=== PATIENT | male | born 1980 | race Caucasian/White ===

== ENCOUNTER 2024-01-08 10:37 | Outpatient (AMB) | payer MEDICAID, SELFPAY ==
--- NOTE | 2024-01-08 10:41 | MHC.OFFVIS ---
Vital Signs 01/08/24 10:44 Height 5 ft 5.75 in Weight 220 lb 7.396 oz BMI 35.9 BP 166/93 H Blood Pressure Location Lt brachial Position Sitting Pulse 94 Intake Visit Reasons: pt scheduled per [facility] Intake Note: Kevin presents in the office as a appt per mark. CC: President And Chief Executive Officer Required: No Allergies No Known Allergies Allergy (Verified 01/08/24 10:45) HPI HPI pt scheduled per [facility]: Details: HPI 43 yr old m here for assessment for abdominal pain, left lower side Pain has been there since last June comes and goes it can be colicky pain can last few hours excedrin helps a lot no issue with urine flow, denies dysuria he admits to chronic constipation - passing the stool does not relieve the pain denies blood in the stool seeing neurologist in [facility] He had EGD and colo last year, mild gastritis and polyps removed ROS: Constitutional : No Weight loss, No Fever, No Chills ENT/Mouth : No sore throat, No Rhinorrhea Eyes: No Swelling, No Redness Cardiovascular : No Chest Pain, No SOB, No Edema Respiratory : No Cough, No Sputum, No Wheezing Gastrointestinal : see HPI Genitourinary : NO Dysuria, No Urinary Frequency, No Hematuria, No Urgency Musculoskeletal : + joint pain, No Myalgias, No Joint Swelling Skin : No Skin Lesions, No rash Neuro : No Weakness, No Numbness, No Dizziness, No Headache--blind and deaf Psych : No Anxiety/Panic, No Depression Heme/Lymph: No Bruising, No Lymphadenopathy Endocrine : No Polyuria, No Polydipsia All other systems reviewed and are negative. Medical History deafness blindness DM Migraines Surgical History spine stimulator Family History Social History EXAM: GENERAL: The patient is well developed and nontoxic. VITAL SIGNS:see workflow HEENT: Nonicteric sclerae, PERRLA, EOMI. Oropharynx clear. Moist mucous membranes. Conjunctivae appear well perfused. No thyroid mass. CHEST: Chest wall is nontender. HEART: Regular rate and rhythm without murmurs. LUNGS: Clear to auscultation bilaterally. ABDOMEN: Soft, positive bowel sounds, nontender, no organomegaly.no flank tenderness SKIN: No rash, no excessive bruising, petechiae, or purpura. NEUROLOGIC: Cranial nerves II-XII intact without motor/sensory deficit. Psych: normal affect A/P: 1/ LLQ pain, colicky, ddx: renal colic, constipation, musculoskeletal etiology, radiculopathy from DM PLAN: 1/ KUB 2/ routine labs, UA 3/ US abdomen 4/ cont with ricardo for the meantime 5/ commence miralax once or twice a day, add levsin prn PFSH Surgical History (Updated 01/08/24 @ 10:45 by GRETA Vee) Hx of colonoscopy Physical Exam Vital Signs: Last Vital Signs Pulse 94 01/08/24 10:44 BP 166/93 H 01/08/24 10:44 BMI result Body Mass Index 35.9 Assessment & Plan Assessment & Plan (1) LLQ abdominal pain: Code(s): R10.32 - Left lower quadrant pain Category: Medical Plan: A/P: 1/ LLQ pain, colicky, ddx: renal colic, constipation, musculoskeletal etiology, radiculopathy from DM PLAN: 1/ KUB 2/ routine labs 3/ US abdomen 4/ cont with ricardo for the meantime 5/ commence miralax once or twice a day, add levsin prn (2) LLQ abdominal pain: Code(s): R10.32 - Left lower quadrant pain Category: Medical Plan: A/P: 1/ LLQ pain, colicky, ddx: renal colic, constipation, musculoskeletal etiology, radiculopathy from DM PLAN: 1/ KUB 2/ routine labs 3/ US abdomen 4/ cont with ricardo for the meantime 5/ commence miralax once or twice a day, add levsin prn Orders: Orders US abdomen complete Today R10.32 - Left lower quadrant pain XR KUB Today R10.32 - Left lower quadrant pain Complete Blood Count Auto Diff Today R10.32 - Left lower quadrant pain Comprehensive Met. Panel Today K75.81 - Nonalcoholic steatohepatitis (HERRERA), R10.32 - Left lower quadrant pain UA CC w/rflx Micro + Cult Today R30.0 - Dysuria Medications: New hyoscyamine sulfate 0.125 mg PO QID 60 tabs 0RF propranolol 20 mg PO BID 60 tabs 1RF hyoscyamine sulfate 0.125 mg PO QID 60 tabs 0RF gabapentin 600 mg PO TID 90 tabs 2RF propranolol 20 mg PO BID 60 tabs 1RF gabapentin 600 mg PO TID 90 tabs 2RF Coding Level of Care Code New Pt Level 3 (19286) Diagnoses LLQ abdominal pain R10.32
[2024-01-08 10:44] VITALS: BP 166/93; PULSE 94; BMI 35.9
== END 2024-01-08 11:33 | disposition home or self-care (01) ==
PROVIDERS: Visit Provider Internal Medicine Gastroenterology
DX: R10.32 Left lower quadrant pain (principal)
CPT/HCPCS: 99203

== ENCOUNTER 2024-01-08 10:37 | Outpatient (REF) | payer MEDICAID, SELFPAY ==
[2024-01-08 11:57] LABS: MANUAL DIFF FLAG NO
[2024-01-08 12:25] LABS: Basophils Absolute Auto 0.1 X10*3/uL (0.0-0.2); Basophils Percent Auto 0.6 % (0-2); Eosinophils Absolute Auto 0.3 X10*3/uL (0.0-0.4); Eosinophils Percent Auto 3.6 % (0-4); Hematocrit 45.2 % (42.0-52.0); Hemoglobin 15.1 g/dl (14.0-18.0); Imm Gran Abs Auto 0.04 X10*3/uL (0.00-0.03); Imm Gran Pct Auto 0.5 % (0.0-0.4); Lymphocytes Absolute Auto 1.7 X10*3/uL (1.2-4.9); Lymphocytes Percent Auto 20.5 % (20-40); Mean Corpuscular HGB Conc 33.4 g/dl (31.0-36.0); Mean Corpuscular Hemoglobin 28.9 pg (27.0-33.0); Mean Corpuscular Volume 86.4 fL (80.0-98.0); Mean Platelet Volume 11.3 fL (9.4-12.4); Monocytes Absolute Auto 0.7 X10*3/uL (0.1-1.2); Monocytes Percent Auto 8.7 % (2-11); Neutrophils Absolute Auto 5.3 x10*3/uL (2.0-8.3); Neutrophils Percent Auto 66.1 % (45-73); Platelet Count 230 X10*3/uL (160-400); Red Blood Count 5.23 X10*6/uL (4.60-5.80); Red Cell Distribution Width 12.3 % (11.0-16.0); White Blood Count 8.1 X10*3/uL (4.8-10.8)
[2024-01-08 13:03] LABS: Alanine Aminotransferase 18 U/L (0-40); Albumin Level 3.8 g/dL (3.5-5.0); Alkaline Phosphatase 95 U/L (39-117); Anion Gap 13 (12-20); Aspartate Amino Transferase 15 U/L (5-37); Bilirubin Total 0.4 mg/dL (0.0-1.0); Blood Urea Nitrogen 33 mg/dL (9-16); Calcium 9.5 mg/dL (8.4-10.2); Carbon Dioxide 26 mmol/L (22-29); Chloride 107 mmol/L (96-108); Estimated Glomerular Filt Rate 37; Glucose Random 86 mg/dL (60-115); Potassium 4.1 mmol/L (3.3-5.1); Sodium 142 mmol/L (135-145); Total Protein 7.1 g/dL (6.5-8.0)
[2024-01-08 14:19] LABS: Appearance Urine Clear; Color Urine Yellow; Glucose Urine UA 250 mg/dL (Negative); Leukocyte Esterase Urine Negative (Negative); Nitrite Urine Negative (Negative); PH 5.5 (5.0-9.0); Specific Gravity - Urine 1.025 (1.005-1.025); UMIC TRIGGER UACC YES; Urine Blood Trace (Negative); Urine Ketones Trace mg/dL (Negative); Urine Protein >=1000 (4+) mg/dL (Neg-Trace)
[2024-01-08 14:21] LABS: Bacteria Urine None Seen (None Seen); Squamous Epithelial Cell Urine 0-2 /HPF (0-2); WBC Urine 0-5 /HPF (0-5)
== END 2024-01-08 10:38 | disposition home or self-care (01) ==
LOC: HO.LAB 10:37
PROVIDERS: Visit Provider Internal Medicine Gastroenterology
DX: R10.32 Left lower quadrant pain (principal); K75.81 Nonalcoholic steatohepatitis (NASH); R30.0 Dysuria
CPT/HCPCS: 36415; 80053; 81001; 85025; 99202

== ENCOUNTER 2024-01-12 09:51 | Outpatient (REF) | payer MEDICAID, OTHER, SELFPAY ==
--- NOTE | ~2024-01-12 | US_ITS ---
EXAMINATION: US ABDOMEN COMPLETE CLINICAL INFORMATION: Left lower quadrant pain, colicky. Check kidneys and other cause of pain. COMPARISON: None available. TECHNIQUE: Real-time imaging of the abdominal viscera. Limited visualization due to bowel gas. FINDINGS: PANCREAS: Limited visualization of pancreatic tail and head. Imaged portion of pancreatic body is unremarkable. ABDOMINAL AORTA: Limited visualization. INFERIOR VENA CAVA: Visualized portions are normal. LIVER: Hepatomegaly, 16.5 cm. Increased hepatic parenchymal heterogeneity and echogenicity could be associated with hepatocellular disease/hepatic steatosis and severely limits visualization. Correlation with liver function tests and clinical exam recommended to determine further management. 5.8 x 5.8 x 7.0 cm cyst along the margin of the liver adjacent to the right kidney, possibly originating from the right kidney versus liver versus intraperitoneal 1.1 x 0.9 x 0.8 cm echogenic lesion right hepatic lobe, possibly representing a hemangioma. GALLBLADDER: A 3 mm possible gallstone versus gallbladder polyp. Limited visualization as gallbladder is suboptimally contracted. Borderline gallbladder wall thickness of 3 mm possibly related to suboptimal distention of gallbladder. COMMON BILE DUCT: Normal in caliber measuring 0.3 cm in diameter. RIGHT KIDNEY: No hydronephrosis. No renal calculi. Limited visualization. The kidney measures 12.1 cm in maximum dimension. LEFT KIDNEY: No hydronephrosis. No renal calculi. Limited visualization. The kidney measures 13.0 cm in maximum dimension. SPLEEN: Normal. The spleen measures 10.5 cm in maximum dimension. FREE FLUID: None. US/US abdomen complete IMPRESSION: 1. Hepatomegaly, 16.5 cm. Increased hepatic parenchymal heterogeneity and echogenicity could be associated with hepatocellular disease/hepatic steatosis and severely limits visualization. Correlation with liver function tests and clinical exam recommended to determine further management. 2. A 7.0 cm cyst along the liver adjacent to the right kidney. A 1.1 cm echogenic lesion right hepatic lobe, possibly representing a hemangioma. MRI with gadolinium recommended for further evaluation. 3. A 3 mm possible gallstone versus gallbladder polyp. Limited visualization as gallbladder is suboptimally contracted. Borderline gallbladder wall thickness of 3 mm possibly related to suboptimal distention of gallbladder.
--- NOTE | ~2024-01-12 | XR_ITS ---
EXAMINATION: XR ABDOMEN KUB CLINICAL INDICATION: Left lower quadrant pain COMPARISON: None available. TECHNIQUE: AP view of the abdomen. FINDINGS: The bowel gas pattern is normal with no evidence of ileus or obstruction. No unusual soft tissue calcifications are noted. The bones are unremarkable. Spinal stimulator devices with tips at the mid and superior endplate of the T8 vertebral body. XR/XR KUB IMPRESSION: Nonobstructive bowel gas pattern.
== END 2024-01-12 09:52 | disposition home or self-care (01) ==
LOC: HO.US 09:51
PROVIDERS: Visit Provider Internal Medicine Gastroenterology
DX: R10.32 Left lower quadrant pain (principal)
CPT/HCPCS: 74018; 76700

== ENCOUNTER 2024-01-19 10:08 | Outpatient (REF) | payer MEDICAID, OTHER, SELFPAY ==
[2024-01-19 11:00] LABS: Estimated Average Glucose 189 mg/dL; Hemoglobin A1c % 8.2 % (<6.0)
[2024-01-19 12:03] LABS: Appearance Urine Clear; Color Urine Yellow; Glucose Urine UA >=1000 mg/dL (Negative); Leukocyte Esterase Urine Negative (Negative); Nitrite Urine Negative (Negative); Specific Gravity - Urine 1.025 (1.005-1.025); UMIC TRIGGER UACC YES; Urine Blood Negative (Negative); Urine Ketones Negative (Negative); Urine Protein 300 (3+) mg/dL (Neg-Trace)
[2024-01-19 12:07] LABS: Bacteria Urine None Seen (None Seen); Hyaline Casts Urine 0-2 /LPF (0-2); RBC Urine 0-2 /HPF (0-2); Squamous Epithelial Cell Urine 0-2 /HPF (0-2); WBC Urine 0-5 /HPF (0-5)
[2024-01-19 12:18] LABS: HBS Num1 13.31 mIU/mL (0-7.99); HBc Num1 4.78 S/CO (0.00-0.79); HBsAGNum1 0.28 S/CO (0.00-0.99); Hepatitis B Surface Antigen Negative (Negative); ~HepC Num1 0.05 S/CO (0.00-0.79); ~Hepatitis B Surface Antibody REACTIVE (Nonreactive); ~Hepatitis C Antibody Nonreactive (Nonreactive)
[2024-01-19 12:19] LABS: Alanine Aminotransferase 18 U/L (0-40); Albumin Level 3.5 g/dL (3.5-5.0); Alkaline Phosphatase 98 U/L (39-117); Anion Gap 13 (12-20); Aspartate Amino Transferase 21 U/L (5-37); Bilirubin Total 0.4 mg/dL (0.0-1.0); Blood Urea Nitrogen 32 mg/dL (9-16); Calcium 9.1 mg/dL (8.4-10.2); Carbon Dioxide 26 mmol/L (22-29); Chloride 104 mmol/L (96-108); Cholesterol 158 mg/dL (<200); Estimated Glomerular Filt Rate 33; Glucose Random 354 mg/dL (60-115); HDL Cholesterol 30 mg/dL (>40); LDL Cholesterol Calculated 75 mg/dL (<100); Potassium 4.7 mmol/L (3.3-5.1); Sodium 138 mmol/L (135-145); Total Protein 6.3 g/dL (6.5-8.0); Triglycerides 266 mg/dL (<150)
[2024-01-19 12:43] LABS: Hepatitis A Antibody IgM 0.27 Index (0-0.79); ~Hepatitis A Antibody IgM Nonreactive (Nonreactive)
[2024-01-19 13:16] LABS: HBc Num2 4.83 S/CO; HBc Num3 4.86 S/CO; Hepatitis B Core Antibody Reactive (Nonreactive)
[2024-01-19 13:31] LABS: Creatinine Urine 89.93 mg/dL
== END 2024-01-19 10:09 | disposition home or self-care (01) ==
LOC: HO.LAB 10:08
PROVIDERS: Visit Provider Internal Medicine Gastroenterology
DX: R10.32 Left lower quadrant pain (principal); N18.30 Chronic kidney disease, stage 3 unspecified
CPT/HCPCS: 36415; 80053; 80061; 81001; 81003; 82043; 82570; 83036; 86704; 86706; 86709; 86803; 87340

== ENCOUNTER 2024-01-26 12:05 | Outpatient (AMB) | payer SELFPAY ==
--- NOTE | 2024-01-26 12:08 | A.OFFVIS_ITS ---
Vital Signs 01/26/24 12:10 Height 5 ft 7 in Weight 222 lb 10.67 oz BMI 34.9 BP 131/79 Blood Pressure Location Lt brachial Position Sitting Pulse 87 Intake Visit Reasons: f/u per mark Intake Note: Kevin presents in the office as follow up. CC: HE is not having any concerns at this time. Sticker Hand Required: Yes Allergies No Known Allergies Allergy (Verified 01/26/24 12:08) HPI HPI f/u per mark: Details: 43 yr old m here for assessment for abdominal pain, left lower side RECAP Pain has been there since last June comes and goes it can be colicky pain can last few hours excedrin helps a lot no issue with urine flow, denies dysuria he admits to chronic constipation - passing the stool does not relieve the pain denies blood in the stool seeing neurologist in [facility] He had EGD and colo last year, mild gastritis and polyps removed INTERIM: Getting work up by neuro--pending a sleep test BP is better today with lisinopril no complaints of abdominal pain no SE from medications reviewed diabetic control and lipids, tests--takes lantus 64 units at night and lispro TID 10-14 units he stopped excedrin per my advice and also neurologist advised avoiding pain killers in case of analgesic headache EXAM: GENERAL: The patient is well developed and nontoxic. VITAL SIGNS:see workflow HEENT: Nonicteric sclerae, PERRLA, EOMI. Oropharynx clear. Moist mucous membranes. Conjunctivae appear well perfused. No thyroid mass. CHEST: Chest wall is nontender. HEART: Regular rate and rhythm without murmurs. LUNGS: Clear to auscultation bilaterally. ABDOMEN: Soft, positive bowel sounds, nontender, no organomegaly.no flank tenderness SKIN: No rash, no excessive bruising, petechiae, or purpura. NEUROLOGIC: Cranial nerves II-XII intact without motor/sensory deficit. 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 25 or so 5/ cont levsin 6/ increase lantus to 70 units at night for the moment 7/ check b12, zinc levels PFSH Surgical History Hx of colonoscopy Physical Exam Vital Signs: Last Vital Signs Pulse 87 01/26/24 12:10 BP 131/79 01/26/24 12:10 BMI result Body Mass Index 34.9 Assessment & Plan Assessment & Plan (1) Hearing loss: Code(s): H91.90 - Unspecified hearing loss, unspecified ear Category: Medical Plan: see above (2) LLQ abdominal pain: Code(s): R10.32 - Left lower quadrant pain Category: Medical Plan: see above (3) CKD (chronic kidney disease) stage 3, GFR 30-59 ml/min: Code(s): N18.30 - Chronic kidney disease, stage 3 unspecified Category: Medical Plan: see above Orders: Orders Protein Creatinine Ratio, Ur Today H91.90 - Unspecified hearing loss, unspecified ear, N18.30 - Chronic kidney disease, stage 3 unspecified, R10.32 - Left lower quadrant pain Comprehensive Met. Panel Today H91.90 - Unspecified hearing loss, unspecified ear, K75.81 - Nonalcoholic steatohepatitis (HERRERA), N18.30 - Chronic kidney disease, stage 3 unspecified, R10.32 - Left lower quadrant pain Zinc Today H91.90 - Unspecified hearing loss, unspecified ear, N18.30 - Chronic kidney disease, stage 3 unspecified, R10.32 - Left lower quadrant pain Vitamin B12 and Folate Today H91.90 - Unspecified hearing loss, unspecified ear, N18.30 - Chronic kidney disease, stage 3 unspecified, R10.32 - Left lower quadrant pain Referrals Ear/Nose/Throat Referral H91.90 - Unspecified hearing loss, unspecified ear Medications: New lisinopril 10 mg PO BID 60 tabs 1RF lisinopril 10 mg PO BID 180 tabs 1RF 90 days lisinopril 10 mg PO BID 60 tabs 1RF Discontinued lisinopril Discontinued Reason: Doctor's Order 5 mg PO DAILY 30 tabs 1RF Coding Level of Care Code Est Pt Level 4 (19993) Diagnoses Hearing loss H91.90 LLQ abdominal pain R10.32 CKD (chronic kidney disease) stage 3, GFR 30-59 ml/min N18.30
[2024-01-26 12:10] VITALS: BP 131/79; PULSE 87; BMI 34.9
== END 2024-01-26 12:26 | disposition home or self-care (01) ==
PROVIDERS: Visit Provider Internal Medicine Gastroenterology
DX: R10.32 Left lower quadrant pain (principal); N18.30 Chronic kidney disease, stage 3 unspecified; H91.90 Unspecified hearing loss, unspecified ear
CPT/HCPCS: 99214

== ENCOUNTER → 2024-01-26 12:05 | Outpatient (BNVA) | payer MEDICAID, OTHER, SELFPAY | PROVIDERS: Visit Provider Internal Medicine Gastroenterology | DX: H91.90 Unspecified hearing loss, unspecified ear (principal); N18.30 Chronic kidney disease, stage 3 unspecified; R10.32 Left lower quadrant pain | CPT/HCPCS: 99212 ==

== ENCOUNTER → 2024-02-07 12:57 | Outpatient (REF) | payer MEDICAID, OTHER, SELFPAY | LOC: HO.SL 12:57 | PROVIDERS: Visit Provider Psychiatry & Neurology Neurology | DX: G47.33 Obstructive sleep apnea (adult) (pediatric) (principal) | CPT/HCPCS: 95806 ==

== ENCOUNTER → 2024-02-07 19:00 | Outpatient (BNV) | payer SELFPAY | PROVIDERS: Visit Provider Internal Medicine | DX: G47.33 Obstructive sleep apnea (adult) (pediatric) (principal) | CPT/HCPCS: 95806 ==